=== PATIENT | female | born 1975 | race Two or more races ===

== ENCOUNTER 2024-04-09 13:41 | Outpatient (CLI) | payer OTHER | END 2024-04-09 13:46 | disposition home or self-care (01) | LOC: EKG 13:41 | PROVIDERS: ATTEND Surgery | DX: I10 Essential (primary) hypertension (principal) ==

== ENCOUNTER 2024-04-22 05:05 | Day surgery (SDC) | payer OTHER ==
[~2024-04-22 05:05] MED LIST: COZAAR100 MG PO; NIFEDIPINE ER30 M1 PO
[2024-04-22] MEDS ORDERED: HEMOSTATIC MATRIX 1 KIT KIT TOP ONE (08:00)
[2024-04-22] MEDS ORDERED: DIBUCAINE 30 GM TUBE RECTAL ONE (08:00)
[2024-04-22] MEDS ORDERED: POVIDONE-IODINE 118 ML BOTT TOP ONE (08:00)
[2024-04-22] MEDS ORDERED: LIDOCAINE HCL 1%/EPINEPHRINE 20ML VIAL IJ ONE (08:00)
[2024-04-22] MEDS ORDERED: METRONIDAZOLE/SODIUM CHLORIDE 500 MG/100 ML PIGGYBACK IV SCH (08:00)
[2024-04-22] MEDS ORDERED: CEFTRIAXONE SODIUM 2,000 MG VIAL IV SCH (08:00)
[2024-04-22] MEDS ORDERED: BUPIVACAINE HCL/PF 0.25% 30ML VIAL InF ONE (08:00)
[2024-04-22] MEDS ORDERED: PERCOCET 5-3251 EACH PO (08:34)
[2024-04-22] MEDS ORDERED: RECTICARE30 GM TOP (08:34)
== END 2024-04-22 14:35 | disposition home or self-care (01) ==
LOC: CIR.AMB 05:05
PROVIDERS: ATTEND Surgery
DX: D12.9 Benign neoplasm of anus and anal canal (principal); K62.82 Dysplasia of anus; K62.0 Anal polyp